=== PATIENT | female | born 1950 | race Caucasian/White ===

== ENCOUNTER 2018-02-23 00:09 | Emergency (ER) | payer MEDICARE, OTHER ==
[~2018-02-23] VITALS: Ht 177.8 cm; Wt 90.7 kg
[2018-02-23] MEDS ORDERED: XYLITOL MISC (00:28)
[2018-02-23] MEDS ORDERED: LEVOTHYROXINE25 MCG PO (00:28)
[2018-02-23] MEDS ORDERED: LEVALBUTER1.25 MG/0. INH (00:28)
[2018-02-23] MEDS ORDERED: ZYRTEC10 MG PO (00:29)
[2018-02-23] MEDS ORDERED: BENADRYL25 MG PO (00:29)
== END 2018-02-23 02:20 | disposition home or self-care (01) ==
LOC: ED 00:09
DX: R51 Headache (principal); H40.052 Ocular hypertension, left eye; R60.0 Localized edema; Z88.5 Allergy status to narcotic agent; Z88.8 Allergy status to other drugs, medicaments and biological substances; Z79.899 Other long term (current) drug therapy
CPT/HCPCS: 70450; 93971; 96374; 96375; 99284; J1200; J2765